=== PATIENT | female | born 1980 | race Caucasian/White ===

== ENCOUNTER 2018-04-12 14:59 | Emergency (ER) | payer BC, SELFPAY ==
[2018-04-12 15:38] VITALS: BP 128/68; PULSE 69; RESP 16; TEMP 36.9; O2SAT 99; BMI 24.4
--- NOTE | 2018-04-12 19:21 | DI.US.S_ITS ---
PROCEDURE: US PERIPH VENOUS LOW EXTREM RT INDICATIONS: pain in thigh, no injury TECHNIQUE: Real-time imaging, as well as color and pulse Doppler interrogation, were performed of the lower extremity deep veins from the inguinal ligament to the popliteal fossa. COMPARISON: None. FINDINGS: The deep veins are normally compressible, and free of intraluminal thrombus. Color and pulse Doppler demonstrate normal phasic intraluminal flow. There is normal augmentation response to distal compression maneuver. IMPRESSION: No DVT found. Dictated by: Basim Juarez M.D. on 04/12/2018 at 20:52 Approved by: Bsaim Juarez M.D. on 04/12/2018 at 20:52
[2018-04-12] MEDS: KETOROLAC 60 MG/2 ML VIAL IM (19:39)
--- NOTE | 2018-04-12 20:20 | ED_ITS ---
HPI - Extremity Problem General Chief complaint: Extremity Problem,Nontraumatic Stated complaint: GROIN PAIN Time Seen by Provider: 04/12/18 18:00 Source: patient Mode of arrival: ambulatory Limitations: no limitations History of Present Illness HPI Narrative: Patient presents to the emergency department this evening with a chief complaint of pain in her right groin and medial thigh in the absence of injury. She states her pain has been increasing over the past 2 days which she had an episode about a month ago as well. During that episode she was seen and evaluate by her surgeon who performed a CT on her pelvis which was unremarkable. She had a right inguinal hernia surgery in October which was repaired with mesh. She does state she has been working out heavily lately including stair climbs and lunges. She denies any fever or chills. She has no numbness, tingling or weakness. She denies any true pelvic pain but does state that the pain starts on her pubic bone and goes into her medial thigh MD Complaint: extremity pain Onset (ago): week(s) Pain Consistency: constant Location: right Severity scale (1-10): 5 Quality: burning, stabbing and aching Radiation: none Relieving factors: immobilization Exacerbating factors: walking and palpation Associated symptoms: denies other symptoms Related Data Home Medications Medication Instructions Recorded Confirmed albuterol sulfate [Ventolin HFA] 1 puff INHALATION DIRECTED 04/12/18 04/12/18 oxycodone-acetaminophen 1 tab PO TID PRN 04/12/18 Previous Rx's Medication Instructions Recorded hydrocodone-acetaminophen 1 tab PO Q4-6H PRN #10 tab 04/12/18 Allergies Allergy/AdvReac Type Severity Reaction Status Date / Time No Known Drug Allergies Allergy Verified 04/12/18 15:44 Review of Systems Review of Systems All systems reviewed & are unremarkable except as noted in HPI and below Constitutional Denies chills, Denies fever(s), Denies lethargy and Denies weakness Eyes Denies change in vision, Denies eye discharge, Denies irritation and Denies loss of vision ENT Ears, Nose, Mouth, and Throat: Denies change in voice, Denies neck pain and Denies sore throat Cardiovascular Denies chest pain, Denies irregular heart rhythm, Denies lightheadedness, Denies palpitations, Denies dyspnea, Denies dyspnea on exertion and Denies orthopnea Respiratory Denies cough, Denies dyspnea, Denies dyspnea on exertion and Denies wheezing Gastrointestinal Gastrointestinal: Denies abdominal pain, Denies change in bowel habits, Denies diarrhea, Denies nausea and Denies vomiting Genitourinary Denies hematuria, Denies flank pain, Denies urinary incontinence and Denies urinary urgency Musculoskeletal Reports limited range of motion and Denies neck pain Integumentary/Breasts Denies pruritus, Denies erythema, Denies rash and Denies wounds Neurologic Denies confusion, Denies loss of vision and Denies weakness Psychiatric Denies anxiety, Denies confusion, Denies depression, Denies homicidal ideation and Denies suicidal ideation Endocrine Denies palpitations Hematologic/Lymphatic Denies easy bruising Allergic/Immunologic Denies wheezing [facility] Social History Smoking Status: Never smoker Exam Narrative Exam Narrative: Pleasant 37-year-old female resting comfortably Initial Vital Signs Initial Vital Signs: Vital Signs Temperature 98.4 F 04/12/18 15:38 Pulse Rate 69 04/12/18 15:38 Respiratory Rate 16 04/12/18 15:38 Blood Pressure 128/68 H 04/12/18 15:38 Pulse Oximetry 99 04/12/18 15:38 Const General: cooperative, well developed and in distress Nutritional Appearance: well nourished Orientation: alert, awake, oriented x3 and not confused [facility] Head: normocephalic and atraumatic Ears: external ears normal and TM's normal bilaterally Nose: external nose normal and No nasal discharge Face and sinus: sinuses nontender, face symmetric, no sinus tenderness and No dry mucous membranes Mouth: oral mucosae normal and moist mucous membranes Teeth and gingiva: dentition normal Throat: tonsils normal and uvula midline Resp Effort & Inspection: normal respiratory effort, able to speak in complete sentences, no respiratory distress and no use of accessory muscles Auscultation: clear to auscultation bilaterally, no rales, no rhonchi and no wheezes GI Inspection: non-distended Palpation: soft, no hepatosplenomegaly, No guarding, No pulsatile mass and No tender Auscultation: normal bowel sounds Other: Patient has no pain in her abdomen or even majority of her pelvis. Her tenderness starts, although very minimally, overlying her right inguinal hernia repair, but more so overlying the pubic bone. She is mainly tender in her leg Back/Spine/Pelvis Back: normal to inspection Skin General: no rashes or lesions noted Lesions: no lesions Rashes: no rashes Trauma: no lacerations or abrasions Wounds: no wounds Neuro General: alert, oriented x3, gait normal and no focal motor deficits Speech: speech normal Extrem Right lower extremity: full ROM and hip/thigh (Patient has tenderness to palpation in the right medial thigh, long-term down her thigh. There is no erythema, warmth nor rash, induration or fluctuance.) Course Orders Ordered: ED Orders 04/12/18 19:21 US periph venous low extrem rt Stat Discontinued Medications Hydrocodone Bitart/Acetaminophen (Vicodin Prepack) 1 bottle MISC SEEINSTR ONE Stop: 04/12/18 21:04 Last Admin: 04/12/18 21:10 Dose: 1 bottle Ketorolac Tromethamine (Toradol) 60 mg IM NOW ONE Stop: 04/12/18 19:22 Last Admin: 04/12/18 19:39 Dose: 60 mg Vital Signs - 8 hr 04/12/18 20:24 04/12/18 21:34 Pulse Rate 56 L 72 Respiratory Rate 18 18 Blood Pressure 121/58 H 138/78 H Pulse Oximetry 99 MDM - Extremity (Nontraumatic) Imaging Data Venous US: Radiologist's impression: PROCEDURE: US PERIPH VENOUS LOW EXTREM RT INDICATIONS: pain in thigh, no injury TECHNIQUE: Real-time imaging, as well as color and pulse Doppler interrogation, were performed of the lower extremity deep veins from the inguinal ligament to the popliteal fossa. COMPARISON: None. FINDINGS: The deep veins are normally compressible, and free of intraluminal thrombus. Color and pulse Doppler demonstrate normal phasic intraluminal flow. There is normal augmentation response to distal compression maneuver. IMPRESSION: No DVT found. Dictated by: Basim Juarez M.D. on 04/12/2018 at 20:52 Approved by: Basim Juarez M.D. on 04/12/2018 at 20:52 Discharge Plan Departure Patient Disposition: Home, Self-Care Clinical Impression: Right groin pain Discharge Date/Time: 04/12/18 21:16 Interventions: ED Discharge Assessment Last Done: 04/12/18 21:34 Instructions: DI for Pelvic Pain Activity Restrictions/Additional Instructions: *You have been diagnosed with [ right groin pain, DVT has been ruled out ] *What to do: *Take medications as directed *Follow up with your primary care provider in 2-3 days, call tomorrow morning for appointment *Return to ER if you should have any new, worsening or concerning symptoms Prescriptions: New hydrocodone-acetaminophen 5-325 mg tablet 1 tab PO Q4-6H PRN (Reason: pain) Qty: 10 RF: 0 No Action albuterol sulfate [Ventolin HFA] 90 mcg/actuation HFA aerosol inhaler 1 puff Inhalation DIRECTED RF: 0 oxycodone-acetaminophen 5-325 mg tablet 1 tab PO TID PRN (Reason: Pain, Severe) RF: 0 Stand Alone Forms: Work/School Restrictions
[2018-04-12 20:24] VITALS: BP 121/58; PULSE 56; RESP 18; O2SAT 99
[2018-04-12] MEDS: HYDROCODONE/ACET 5/325 PREPACK 1 BOTTLE MISC (21:10)
[2018-04-12 21:34] VITALS: BP 138/78; PULSE 72; RESP 18
== END 2018-04-12 21:16 | disposition home or self-care (01) ==
PROVIDERS: Emergency Provider Emergency Medicine
DX: R10.31 Right lower quadrant pain (principal)
CPT/HCPCS: 81003; 81025; 93971; 96372; 99283; 99284; J1885